=== PATIENT | female | born 1985 ===

== ENCOUNTER 2020-10-25 04:26 | Day surgery (SDC) | payer OTHER | END 2020-10-25 14:20 | disposition home or self-care (01) | LOC: CIR.AMB 04:26 → CIR LITO 07:00 → CIR.AMB 07:00 | PROVIDERS: ATTEND Obstetrics & Gynecology | DX: Z30.2 Encounter for sterilization (principal); Z20.828 Contact with and (suspected) exposure to other viral communicable diseases ==